=== PATIENT | female | born 1950 | race Caucasian/White ===

== ENCOUNTER 2021-01-23 06:03 | Emergency (ER) | payer MEDICARE, OTHER ==
[~2021-01-23] VITALS: Ht 167.7 cm; Wt 65.8 kg
[2021-01-23] MEDS ORDERED: NS IV 1000 ML 1,000 ML IV STA (06:38)
[2021-01-23] MEDS ORDERED: DICYCLOMINE 10 MG/ML (BENTYL) 2 ML AMP IM STA (06:38)
--- NOTE | 2021-01-23 07:00 | ED GI ---
General Chief Complaint: Abdominal/GI Problems Stated Complaint: DIARRHEA Nursing Triage Note: PT AMBULATE TO ROOM FS02 WITHOUT DIFFICULTY WITH C/O DIARRHEA X1 WEEK. PT REPORTS TAKING PEPTO BISMOL WITH RELIEVED THE DIARRHEA AND THAT THEN SHE WAS CONSTIPATED. PT STATES THAT THE DIARRHEA RETURNED THIS MORNING. PT STATES THAT SHE HAS NOT SEEN HER PCP FOR THIS C/O. PT STATES THAT SHE "JUST DIDN'T WANT TO BE MISERABLE ALL WEEKEND" SO SHE CAME TO THE ED. Source of Information: Patient (MARIANNA MCCORD MD) History of Present Illness Date Seen by Provider: Jan 23, 2021 Time Seen by Provider: 06:21 Initial Comments 70-year-old female presenting with complaints of diarrhea this week. She had tried taking some Pepto-Bismol which had stopped the diarrhea but can cause constipation. She would have this morning and had diarrhea again and then will be miserable again so she came to the emergency department. She was worried that the diarrhea does not continue. She continues to not feel well. She denies having fever or chills, blood in her stool, blood in her urine, pain with urination, nausea, vomiting. She has abdominal cramping especially right before having diarrhea. She denies any ill contacts. She has occasionally felt dizzy and lightheaded especially with standing and changing positions. Timing/Duration: 1 Week Severity/Quality: Cramping Location: Generalized Abdomen Associated Symptoms: No Back Pain, No Chest Pain, No Diaphoresis, No Fever/Chills; Fatigue; No Headache, No Heartburn, No Nausea/Vomiting, No Rash, No Shortness of Air, No Swelling/Mass in Abdomen, No Syncope; Weakness (general) (MARIANNA MCCORD MD) Allergies and Home Medications Allergies Coded Allergies: No Known Allergies (Verified Allergy, Unknown, 01/23/21) Home Medications Ciprofloxacin HCl 500 Mg Tablet, 500 MG PO BID Prescribed by: NAYE SILVA on 01/23/21914 Metronidazole 500 Mg Tablet, 500 MG PO BID Prescribed by: NAYE SILVA on 01/23/21914 Ondansetron 4 Mg Tab.rapdis, 4 MG PO Q6H PRN for NAUSEA/VOMITING Prescribed by: NAYE SILVA on 01/23/21914 Patient Home Medication List Home Medication List Reviewed: Yes (MARIANNA MCCORD MD) Review of Systems Review of Systems Constitutional: No chills; dizziness (with standing and changing positions); No fever; malaise, weakness (general) EENTM: No Symptoms Reported Respiratory: No Symptoms Reported Cardiovascular: No Symptoms Reported Gastrointestinal: See HPI Genitourinary: No Symptoms Reported Musculoskeletal: no symptoms reported Skin: no symptoms reported Psychiatric/Neurological: Anxiety Endocrine: No Symptoms Reported (MARIANNA MCCORD MD) Past Sstjpzp-Kyeekn-Sugbxt Hx Patient Social History Tobacco Use?: Yes Tobacco type used: Cigarettes Smoking Status: Current Everyday Smoker Use of E-Cig and/or Vaping dev: No Substance use?: No Alcohol Use?: No Pt feels they are or have been: No (MARIANNA MCCORD MD) Physical Exam Vital Signs Vital Signs - First Documented 01/23/21 06:22 Temp 36.9 Pulse 58 Resp 18 B/P (MAP) 130/63 (85) O2 Delivery Room Air (SILVA,NAYE L DO) Vital Signs Capillary Refill : Less Than 3 Seconds (MARIANNA MCCORD MD) Height/Weight/BMI Height: '" Weight: lbs. oz. kg; 23.00 BMI Method: General Appearance: WD/WN, no apparent distress HEENT: PERRL/EOMI, pharynx normal Neck: non-tender, supple, normal inspection Respiratory: chest non-tender, lungs clear, normal breath sounds, no respiratory distress, no accessory muscle use Cardiovascular: normal peripheral pulses, regular rate, rhythm Gastrointestinal: non tender, soft, no pulsatile mass, abnormal bowel sounds (hyperactive) Rectal: deferred Extremities: normal range of motion, non-tender, normal capillary refill Back: no vertebral tenderness Neurologic/Psychiatric: alert, oriented x 3 Skin: normal color, warm/dry (MARIANNA MCCORD MD) Images 1 - diffuse crampy pain with gas (MARIANNA MCCORD MD) Progress/Results/Core Measures Results/Orders Lab Results Laboratory Tests Test 01/23/21 06:43 01/23/21 07:10 Range/Units Urine Color YELLOW Urine Clarity CLEAR Urine pH 6.0 5-9 Urine Specific [place] 1.015 L 1.016-1.022 Urine Protein NEGATIVE NEGATIVE Urine Glucose (UA) NEGATIVE NEGATIVE Urine Ketones NEGATIVE NEGATIVE Urine Nitrite NEGATIVE NEGATIVE Urine Bilirubin NEGATIVE NEGATIVE Urine Urobilinogen 0.2 < = 1.0 MG/DL Urine Leukocyte Esterase NEGATIVE NEGATIVE Urine RBC (Auto) 1+ H NEGATIVE Urine RBC 10-25 H /HPF Urine WBC NONE /HPF Urine Squamous Epithelial Cells 5-10 /HPF Urine Crystals NONE /LPF Urine Bacteria FEW H /HPF Urine Casts PRESENT /LPF Urine Hyaline Casts 5-10 H /LPF Urine Mucus SMALL H /LPF Urine Culture Indicated NO White Blood Count 7.5 4.3-11.0 10^3/uL Red Blood Count 4.40 4.35-5.85 10^6/uL Hemoglobin 14.1 11.5-16.0 G/DL Hematocrit 40 35-52 % Mean Corpuscular Volume 90 80-99 FL Mean Corpuscular Hemoglobin 32 25-34 PG Mean Corpuscular Hemoglobin Concent 36 32-36 G/DL Red Cell Distribution Width 12.0 10.0-14.5 % Platelet Count 204 130-400 10^3/uL Mean Platelet Volume 10.1 7.4-10.4 FL Neutrophils (%) (Auto) 72 42-75 % Lymphocytes (%) (Auto) 17 12-44 % Monocytes (%) (Auto) 11 0-12 % Eosinophils (%) (Auto) 0 0-10 % Basophils (%) (Auto) 0 0-10 % Neutrophils # (Auto) 5.4 1.8-7.8 X 10^3 Lymphocytes # (Auto) 1.3 1.0-4.0 X 10^3 Monocytes # (Auto) 0.8 0.0-1.0 X 10^3 Eosinophils # (Auto) 0.0 0.0-0.3 10^3/uL Basophils # (Auto) 0.0 0.0-0.1 10^3/uL Sodium Level 126 L 135-145 MMOL/L Potassium Level 3.6 3.6-5.0 MMOL/L Chloride Level 87 L 98-107 MMOL/L Carbon Dioxide Level 28 21-32 MMOL/L Anion Gap 11 5-14 MMOL/L Blood Urea Nitrogen 10 7-18 MG/DL Creatinine 0.89 0.60-1.30 MG/DL Estimat Glomerular Filtration Rate > 60 BUN/Creatinine Ratio 11 Glucose Level 102 70-105 MG/DL Calcium Level 10.2 H 8.5-10.1 MG/DL Corrected Calcium 9.8 8.5-10.1 MG/DL Total Bilirubin 1.0 0.1-1.0 MG/DL Aspartate Amino Transf (AST/SGOT) 19 5-34 U/L Alanine Aminotransferase (ALT/SGPT) 14 0-55 U/L Alkaline Phosphatase 66 40-136 U/L Total Protein 7.2 6.4-8.2 GM/DL Albumin 4.5 3.2-4.5 GM/DL Lipase 30 8-78 U/L (NAYE SILVA DO) My Orders Orders - JAYE SILVAR Corine WALKER Iohexol Injection (Omnipaque 350 Mg/Ml 1 (01/23/21 07:45) Received Contrast (Hold Metformin- Contr (01/23/21 07:45) Sodium Chloride Flush (Catheter Flush Sy (01/23/21 07:45) Ns (Ivpb) (Sodium Chloride 0.9% Ivpb Bag (01/23/21 07:45) (NAYE SILVA DO) Medications Given in ED Current Medications Medications Dose Ordered Sig/Saida Route Start Time Stop Time Status Last Admin Dose Admin Iohexol 100 ml ONCE ONCE IV 01/23/21 07:45 01/23/21 07:46 DC 01/23/21 08:02 100 ML Sodium Chloride 10 ml NEEDED PRN IV 01/23/21 07:45 01/23/21 08:02 10 ML Sodium Chloride 100 ml ONCE ONCE IV 01/23/21 07:45 01/23/21 07:46 DC 01/23/21 08:02 100 ML (NAYE SILVA DO) Vital Signs/I&O 01/23/21 06:22 Temp 36.9 Pulse 58 Resp 18 B/P (MAP) 130/63 (85) O2 Delivery Room Air (JAYE SILVAR Corine WALKER) Blood Pressure Mean: 85 Progress Progress Note : Progress Note check labs and urine and CT scan to evaluate for colitis vs diverticulitis vs inflammation or fluid collection in abdominal cavity. If she has diarrhea will send for stool studies. NS bolus for hydration. Bentyl 20 mg IM for abdominal gas and cramping. Care passed to Dr. Silva at 0700 (MARIANNA MCCORD MD) Progress Note : Time: 09:[address] shows some mild sigmoid diverticulosis. We will start her on some Cipro Flagyl. She should follow-up with her primary care provider next week for recheck of symptoms (NAYE SILVA DO) Diagnostic Imaging Diagonstic Imaging: CT Plain Films/CT/US/NM/MRI: abdomen Comments ROCEDURE: CT abdomen and pelvis with contrast. TECHNIQUE: Multiple contiguous axial images were obtained through the abdomen and pelvis after administration of intravenous contrast. Auto Exposure Controls were utilized during the CT exam to meet ALARA standards for radiation dose reduction. All CT scans use one or more of the following dose optimizing techniques: automated exposure control, MA and/or KvP adjustment based on patient size and exam type or iterative reconstruction. INDICATION: Abdominal pain x1 week with cramping and diarrhea. Lung bases are clear. The liver appears normal. Gallbladder appears normal. Pancreas appears normal. Spleen is not enlarged. Adrenals are unremarkable. Kidneys are unremarkable. Small bowel is not dilated. There is no evidence of appendicitis. There is colonic diverticulosis. There is some induration of the pericolonic fat in the sigmoid region. There is no evidence of perforation or diverticular abscess. Uterus appears normal. Adnexa unremarkable. Urinary bladder appears normal. There is no intraperitoneal free air or free fluid. IMPRESSION: Colonic diverticulosis with suspected sigmoid diverticulitis. (NAYE SILVA DO) Transfer of Care Time: 07:00 Care transferred to: Dr. Silva (MARIANNA MCCORD MD) Departure Impression Primary Impression: Sigmoid diverticulosis Disposition: HOME, SELF-CARE Condition: Stable Departure-Patient Inst. Referrals: AUDREY ROSARIO MD (PCP/Family) Primary Care Physician Patient Instructions: Diverticulosis Add. Discharge Instructions: Drink plenty of fluids, Tylenol ibuprofen as needed for pain, follow-up with your primary care provider in a couple days for recheck of today's symptoms All discharge instructions reviewed with patient and/or family. Voiced understanding. Scripts Ondansetron (Ondansetron Odt) 4 Mg Tab.rapdis 4 MG PO Q6H PRN for NAUSEA/VOMITING, #20 TAB 0 Refills Prov: NAYE SILVA DO 01/23/21 Metronidazole (Metronidazole) 500 Mg Tablet 500 MG PO BID, #14 TAB 0 Refills Prov: NAYE SILVA DO 01/23/21 Ciprofloxacin HCl (Ciprofloxacin HCl) 500 Mg Tablet 500 MG PO BID, #14 TAB Prov: NAYE SILVA DO 01/23/21 MARIANNA MCCORD MD Jan 23, 2021 07:00 NAYE SILVA DO Jan 23, 2021 09:15
[2021-01-23 07:17] LABS: BASOPHILS % (AUTO) 0 % (0-10); EOSINOPHILS % (AUTO) 0 % (0-10); HEMATOCRIT 40 % (35-52); HEMOGLOBIN 14.1 G/DL (11.5-16.0); LYMPHOCYTES # (AUTO) 1.3 X 10^3 (1.0-4.0); LYMPHOCYTES % (AUTO) 17 % (12-44); MEAN CORPUSCULAR HEMOGLOBIN 32 PG (25-34); MEAN CORPUSCULAR HGB CONC 36 G/DL (32-36); MEAN CORPUSCULAR VOLUME 90 FL (80-99); MEAN PLATELET VOLUME 10.1 FL (7.4-10.4); MONOCYTES # (AUTO) 0.8 X 10^3 (0.0-1.0); MONOCYTES % (AUTO) 11 % (0-12); NEUTROPHILS # (AUTO) 5.4 X 10^3 (1.8-7.8); NEUTROPHILS % (AUTO) 72 % (42-75); PLATELET COUNT 204 10^3/uL (130-400); WHITE BLOOD COUNT 7.5 10^3/uL (4.3-11.0)
[2021-01-23 07:22] LABS: BACTERIA,URINE FEW /HPF; BILIRUBIN,URINE NEGATIVE (NEGATIVE); CLARITY,URINE CLEAR; COLOR,URINE YELLOW; GLUCOSE, URINE (UA) NEGATIVE (NEGATIVE); KETONES,URINE NEGATIVE (NEGATIVE); LEUKOCYTE ESTERASE ,URINE NEGATIVE (NEGATIVE); NITRITE,URINE NEGATIVE (NEGATIVE); PROTEIN,URINE NEGATIVE (NEGATIVE)
[2021-01-23 07:43] LABS: ALANINE AMINOTRANSFERASE 14 U/L (0-55); ALBUMIN 4.5 GM/DL (3.2-4.5); ALKALINE PHOSPHATASE 66 U/L (40-136); BUN/CREATININE RATIO 11; CALCIUM 10.2 MG/DL (8.5-10.1); CARBON DIOXIDE 28 MMOL/L (21-32); CHLORIDE 87 MMOL/L (98-107); CREATININE SERUM 0.89 MG/DL (0.60-1.30); GFR ESTIMATED > 60; GLUCOSE 102 MG/DL (70-105); LIPASE 30 U/L (8-78); POTASSIUM 3.6 MMOL/L (3.6-5.0); SODIUM 126 MMOL/L (135-145); TOTAL PROTEIN 7.2 GM/DL (6.4-8.2)
[2021-01-23] MEDS ORDERED: HOLD METFORMIN - RECEIVED CONTRAST 20 ML VIAL IV SCH (07:45)
[2021-01-23] MEDS ORDERED: IOHEXOL 350 MG/ML 100 ML (OMNIPAQUE 350) VIAL IV ONE (07:45)
[2021-01-23] MEDS ORDERED: CATHETER FLUSH 10 ML SYR IV PRN (07:45)
[2021-01-23] MEDS ORDERED: NS 100 ML (IVPB) BAG IV ONE (07:45)
--- NOTE | 2021-01-23 09:06 | Diagnostic Imaging Report ---
PROCEDURE: CT abdomen and pelvis with contrast. TECHNIQUE: Multiple contiguous axial images were obtained through the abdomen and pelvis after administration of intravenous contrast. Auto Exposure Controls were utilized during the CT exam to meet ALARA standards for radiation dose reduction. All CT scans use one or more of the following dose optimizing techniques: automated exposure control, MA and/or KvP adjustment based on patient size and exam type or iterative reconstruction. INDICATION: Abdominal pain x1 week with cramping and diarrhea. Lung bases are clear. The liver appears normal. Gallbladder appears normal. Pancreas appears normal. Spleen is not enlarged. Adrenals are unremarkable. Kidneys are unremarkable. Small bowel is not dilated. There is no evidence of appendicitis. There is colonic diverticulosis. There is some induration of the pericolonic fat in the sigmoid region. There is no evidence of perforation or diverticular abscess. Uterus appears normal. Adnexa unremarkable. Urinary bladder appears normal. There is no intraperitoneal free air or free fluid. IMPRESSION: Colonic diverticulosis with suspected sigmoid diverticulitis. Dictated by: Dictated on workstation # [id number]
[2021-01-23] MEDS ORDERED: ONDA4TAB11 PO (09:15)
[2021-01-23] MEDS ORDERED: CIPR500T5 PO (09:15)
[2021-01-23] MEDS ORDERED: METR-145 PO (09:15)
[2021-01-23 09:32] VITALS: BP 133/72
== END 2021-01-23 09:32 | disposition home or self-care (01) ==
LOC: EDUNIT# 06:03 → ER FS 06:15
DX: K57.30 Diverticulosis of large intestine without perforation or abscess without bleeding (principal); F17.210 Nicotine dependence, cigarettes, uncomplicated
CPT/HCPCS: 36415; 74177; 80053; 81000; 83690; 85025